=== PATIENT | female | born 1970 | race Caucasian/White ===

== ENCOUNTER → 2023-12-11 06:31 | Day surgery (SDC) | payer OTHER, SELFPAY ==
[2023-12-11 13:36] VITALS: BMI 25.7
[2023-12-11 13:37] VITALS: BMI 25.7
[2023-12-11 13:38] VITALS: BP 111/66
[2023-12-11 15:56] VITALS: BP 99/82
[2023-12-11 16:00] VITALS: BP 100/68
[2023-12-11 16:15] VITALS: BP 115/62
[2023-12-11 16:30] VITALS: BP 123/60
== END ==
LOC: SDS 06:31
PROVIDERS: ATTENDING PHYSICIAN Internal Medicine Gastroenterology
DX: K85.90 Acute pancreatitis without necrosis or infection, unspecified (principal)
CPT/HCPCS: 43237

== ENCOUNTER → 2024-11-02 19:04 | Outpatient (REF) | payer OTHER, SELFPAY | LOC: WDC 19:04 | PROVIDERS: ATTENDING PHYSICIAN Physician Assistant | DX: Z12.31 Encounter for screening mammogram for malignant neoplasm of breast (principal) | CPT/HCPCS: 77063; 77067 ==